=== PATIENT | male | born 1980 | race Asian ===

== ENCOUNTER → 2020-05-17 | Outpatient (CLI) | payer OTHER ==
[~2020-05-17] MED LIST: OXYC1TAB15 PO
== END | disposition home or self-care (01) ==
LOC: LAB 13:32
PROVIDERS: ATTEND Surgery
DX: Z01.818 Encounter for other preprocedural examination (principal); Z11.59 Encounter for screening for other viral diseases; K40.90 Unilateral inguinal hernia, without obstruction or gangrene, not specified as recurrent
CPT/HCPCS: U0003-CS

== ENCOUNTER 2020-05-21 10:29 | Day surgery (SDC) | payer OTHER ==
[~2020-05-21] VITALS: Ht 188 cm; Wt 93.5 kg
[~2020-05-21 10:29] MED LIST changes: +BUPIVACAINE-EPI 0.25%-1:200000 MPF 30 ML VIAL. ONE; +DEXAMETHASONE SOD PHOS 20 MG/5 ML VIAL. ONE; +HYDROmorphone 2 MG/ML VIAL IV PRN; +IV RINGERS,LACTATED 1000ML 1,000 ML IV SCH; +MIDAZOLAM HCL/PF 2 MG/2 ML VIAL. ONE; +MINERAL OIL for SURGERY 10 ML VIAL. MC ONE; +MORPHINE SULFATE 2 MG/ML VIAL. IV PRN; +ONDANSETRON PF 4 MG/2 ML VIAL. IV PRN; +ONDANSETRON PF 4 MG/2 ML VIAL. ONE; -OXYC1TAB15 PO; +PROCHLORPERAZINE 10 MG/2 ML VIAL. IV PRN; +ROCURONIUM 50 MG/5 ML VIAL. ONE; +SUCCINYLCHOLINE 200 MG/10 ML VIAL. ONE; +fentaNYL PF VIAL 100 MCG/2 ML VIAL IV PRN; +fentaNYL PF VIAL 100 MCG/2 ML VIAL ONE
[2020-05-21] MEDS ORDERED: ACETAMINOPHEN 500 MG TABLET PO ONE (10:32)
[2020-05-21] MEDS ORDERED: KETOROLAC 30 MG/ML VIAL. ONE (12:14)
[2020-05-21] MEDS ORDERED: fentaNYL PF VIAL 100 MCG/2 ML VIAL ONE ×2 (12:25→13:13)
[2020-05-21] MEDS ORDERED: SEVOFLURANE 61 TO 120 MINUTES. IH ONE (12:52)
--- NOTE | 2020-05-21 13:05 | PDOC4 ---
Operative Note Operative Note Date: 05/21 at 1302 Preoperative diagnosis: Left inguinal hernia possible right inguinal hernia Postoperative diagnosis: Left inguinal hernia Procedure: Robotic assisted laparoscopic left inguinal hernia repair with mesh Surgeon: Stefan Specimen: None Dictation: Patient is a 40-year-old male who has left groin pain and a bulge consistent with a left inguinal hernia. The procedure of robotic assisted laparoscopic left inguinal hernia repair with mesh was explained to the patient detail was benefits were also discussed including bleeding infection injury to intra-abdominal contents possibly necessitating further or open operations alternatives to this procedure also discussed with the patient who seemed to understand and gave both verbal and written consent to have the procedure performed. Patient was taken to the operating room placed in the supine position general anesthesia was initiated once patient was sleeping intubated was placed in low lithotomy positioning and his abdomen was prepped and draped usual sterile fashion using ChloraPrep. An area just above the umbilicus was injected with quarter percent Marcaine with epinephrine incision was made 11 blade scalpel and a varies needle was placed within the abdomen creating pneumoperitoneum once this complete a millimeter da Gabo port was placed in a 8 mm da Gabo camera was placed within the abdomen which was inspected left inguinal hernia was noted the right side was inspected there was no hernia on the right side. A millimeter da Gabo port was placed in the right midabdomen and a 8 mm da Gabo port was placed in the left midabdomen the da Gabo robot was brought in and docked to all port sites surgeon went to the robotic console using a grasper and Endo Lima scissors the peritoneum over the left side was incised and a window was propagated inferiorly reducing the hernia sac and contents was fairly large cord lipoma reduced. A large left-sided Bard 3D max mesh was then placed within the abdomen this was placed over the hernia defect on the left side and the peritoneum was closed with a running V lock absorbable suture. The robot was undocked from all port sites pneumoperitoneum was reduced all ports were removed all port sites were closed with 4 subcuticular Monocryl Mastisol Steri-Strips and island dressings were applied. Patient was awakened and extubated in the operating room taken to recovery in stable condition all sponge instrument needle counts listed as correct estimated blood loss 5 mL RAYMUNDO HIDALGO MD May 21, 2020 13:05
--- NOTE | 2020-05-21 13:07 | DISCH ---
DISCHARGE INSTRUCTIONS Condition on Discharge Condition on Discharge: Stable Activity After Discharge Activity Instructions for Disc: Avoid exertion Other activity instructions: No lifting more than 20 pounds for 2 weeks Diet after Discharge Diet after Discharge: Regular Wound Incision Care Other wound/incision instructi: May shower in 24 hours Contacting the [facility] after DC Call your doctor for: If your condition worsens Follow-Up Follow up with: Dr. Hidalgo in 2 weeks RAYMUNDO HIDALGO MD May 21, 2020 13:07
[2020-05-21] MEDS: fentaNYL PF VIAL 100 MCG/2 ML VIAL IV PRN ×4 (13:31→14:03)
[2020-05-21] MEDS ORDERED: OXYC1TAB15 PO (13:34)
[2020-05-21] MEDS ORDERED: oxyCODONE/APAP 5/325 1 TAB TABLET PO ONE (13:45)
[2020-05-21 14:30] VITALS: BP 94/61
== END 2020-05-21 15:06 | disposition home or self-care (01) ==
LOC: SURG 10:29 → EDUNIT# 12:00 → SURG 15:06
PROVIDERS: ATTEND Surgery
DX: K40.90 Unilateral inguinal hernia, without obstruction or gangrene, not specified as recurrent (principal); Z79.82 Long term (current) use of aspirin; Z79.899 Other long term (current) drug therapy
CPT/HCPCS: 49650; A7015; C1781; J0330; J1100; J1885; J2250; J2405; J3010; J3490; J7120; S2900; J0690